=== PATIENT | female | born 1980 | race Caucasian/White ===

== ENCOUNTER 2025-06-10 20:02 | Emergency (ER) | payer SELFPAY ==
[2025-06-10 20:03] VITALS: BP 138/95; BMI 31.8
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
[2025-06-10 21:50] LABS: Hematocrit 39.6 % (37.0-47.0); Hemoglobin 13.8 g/dL (12.0-16.0); Mean Corp Hgb Conc. 34.8 g/dL (33.0-37.0); Mean Corpuscular Volume 95.0 fL (81.0-99.0); Nucleated Red Blood Cells % 0 %; Platelet Count 297 10^3/uL (130-400); Red Cell Dist. Width 13.9 % (11.5-14.5)
[2025-06-10 22:09] LABS: HCG, Serum Qualitative Screen Negative
[2025-06-10 22:13] LABS: Blood Urea Nitrogen 9 mg/dl (7-17); Calcium 9.5 mg/dl (8.4-10.2); Carbon Dioxide 17 mmol/L (22-30); Chloride 111 mmol/L (98-107); Estimated Creatinine Clearance 124 ml/min; Glucose 99 mg/dl (70-99); Sodium 141 mmol/L (135-145); eGFR > 60.00
[2025-06-11] VITALS: BP 134/74
== END 2025-06-11 00:41 | disposition home or self-care (01) ==
LOC: EMR 20:02
PROVIDERS: Physician Assistant; EMERGENCY PHYSICIAN Emergency Medicine
DX: F10.129 Alcohol abuse with intoxication, unspecified (principal); R45.1 Restlessness and agitation; R45.6 Violent behavior; Y90.8 Blood alcohol level of 240 mg/100 ml or more; Z59.71 Insufficient health insurance coverage
CPT/HCPCS: 99284; 80048; 82077; 84703; 85025